=== PATIENT | female | born 1960 | race Caucasian/White ===

== ENCOUNTER → 2016-12-30 | Outpatient (CLI) | payer MEDICAID | END | disposition home or self-care (01) | LOC: LABWHC1 07:12 | PROVIDERS: ATTEND Internal Medicine Endocrinology, Diabetes & Metabolism | DX: E03.9 Hypothyroidism, unspecified (principal) | CPT/HCPCS: 36415; 84439; 84443; 84481 ==

== ENCOUNTER → 2017-01-25 | Outpatient (CLI) | payer MEDICAID ==
--- NOTE | 2017-01-25 22:40 | PN ---
Rody is 56 with known history of obstructive sleep apnea, maintained on CPAP pressure of 7 cm of water, which was further increased up to 8 cm of water because of some suspected suboptimal response. Please refer to my consultation note of 08/31/2016. This patient underwent her sleep study at [facility] a few years back. She was given a diagnosis of sleep apnea and she was being treated with a CPAP pressure of 7. Based on her weight gain history, I increased her pressure up to 8 cm of water. On today's evaluation, she is still feeling non-rested. She is wearing a FitBit which is showing poor sleep quality. On average she is taking less than 6 hours of sleep, and at the same time she is having frequent arousals throughout the night based on the recorded data being downloaded. I think her sleep is fragmented. The possibilities are many, although I suspect fibromyalgia being a contributing factor along with her increased anxiety and low-grade depression. For that reason I recommended starting this patient on low-dose amitriptyline 10 mg at bedtime. Meanwhile she will continue using her CPAP at a pressure of 8 cm of water. She has an S9 CPAP unit which she has been utilizing, and her weight has been stable over the past 6 months. There is questionable restless in the lower extremities, and she has been treated in the past with some side effects of treatment. I believe she was given clonazepam back then. PERTINENT PHYSICAL FINDINGS: BP is 113/90, pulse 83, respiration 16, temperature 98.1, saturation 99% on room air. Height is 69-1/2 inches. Weight is 226. BMI is 32.8. Chuckey score is 5. GENERAL APPEARANCE: Calm, comfortable. HEENT: Negative for JVD. There is no goiter or neck mass. LUNGS: Clear to auscultation. HEART: Sounds are regular rate and rhythm. Normal S1, S2. No S3. No S4. No murmurs. ABDOMEN: Soft, nontender. No organomegaly. EXTREMITIES: No edema. No cyanosis or clubbing. IMPRESSION: 1. Obstructive sleep apnea, currently on CPAP with a pressure of 8 cm of water. The patient remains compliant. 2. Sleep fragmentation with frequent nocturnal arousals. Rule out comorbidities, including anxiety and fibromyalgia contributing to this. 3. Increased hypersomnia and fatigue secondary to above. 4. Hypothyroidism. 5. Chronic allergic rhinitis. PLAN: 1. Will ask the patient to extend her sleep hours to an average of 6 to 7 hours of sleep per night. 2. Add Elavil 10 mg at bedtime, which will help this patient's symptoms of fibromyalgia and promote some degree of sleepiness at nighttime. 3. See me back in 6 months' time in followup. Meanwhile, the patient was asked to continue wearing the CPAP pressure at the same level.
== END | disposition home or self-care (01) ==
LOC: SLEEP 16:38
PROVIDERS: ATTEND Internal Medicine Critical Care Medicine
DX: G47.33 Obstructive sleep apnea (adult) (pediatric) (principal); G47.10 Hypersomnia, unspecified; E03.9 Hypothyroidism, unspecified; J30.9 Allergic rhinitis, unspecified; E66.9 Obesity, unspecified; F41.9 Anxiety disorder, unspecified; F32.9 Major depressive disorder, single episode, unspecified; Z68.32 Body mass index [BMI] 32.0-32.9, adult; Z99.89 Dependence on other enabling machines and devices

== ENCOUNTER 2017-03-11 06:56 | Day surgery (SDC) | payer MEDICAID ==
[2017-03-07 15:00] VITALS: BMI 30.7
[~2017-03-11 06:56] MED LIST: LACTATED RINGERS 1,000 ML IV SCH
[2017-03-11] MEDS ORDERED: LACTATED RINGERS 1,000 ML IV ONE (07:00)
[2017-03-11 07:11] VITALS: RESP 16; TEMP 98
[2017-03-11] MEDS ORDERED: PROPOFOL 10 MG/ML 20 ML VIAL IV ONE (07:38)
[2017-03-11] MEDS ORDERED: fentaNYL (PF) 50 MCG/ML 2 ML AMP ONE (07:38)
[2017-03-11] MEDS ORDERED: MIDAZOLAM 2 MG/2 ML VIAL ONE (07:38)
--- NOTE | 2017-03-11 07:46 | P.GSHP ---
History of Present Illness H&P Date: 03/11/17 Chief Complaint: Colon cancer screening Patient here today for colonoscopy. Her last one was about 7-8 years ago. She has a family history of colon cancer and her parents. No bowel related complaints. Last colonoscopy was normal. Past Medical History Past Medical History: Cancer, Fibromyalgia, Sleep Apnea/CPAP/BIPAP, Thyroid Disorder Additional Past Medical History / Comment(s): no current medication for BP, influenza 2 months ago, skiin cancer History of Any Multi-Drug Resistant Organisms: None Reported Past Surgical History: Section, Cholecystectomy, Orthopedic Surgery Additional Past Surgical History / Comment(s): danna carpal tunnel Past Anesthesia/Blood Transfusion Reactions: Motion Sickness Past Psychological History: No Psychological Hx Reported Smoking Status: Never smoker Past Alcohol Use History: Occasional Past Drug Use History: None Reported - Past Family History Mother Family Medical History: No Reported History Medications and Allergies Home Medications Medication Instructions Recorded Confirmed Type Albuterol Sulfate [Proair Hfa] 2 puff INHALATION DAILY PRN 03/07/17 03/11/17 History Loratadine [Claritin] 10 mg PO DAILY 03/07/17 03/11/17 History Ranitidine HCl 150 mg PO BID 03/07/17 03/11/17 History Thyroid,Pork [[place] Thyroid] 120 mg PO SUSA 03/07/17 03/11/17 History Thyroid,Pork [[place] Thyroid] 180 mg PO MOTUWETHFR 03/07/17 03/11/17 History Allergies Allergy/AdvReac Type Severity Reaction Status Date / Time No Known Allergies Allergy Verified 03/11/17 07:12 Surgical - Exam Vital Signs Temp Pulse Resp BP 98 F 72 16 138/74 03/11/17 07:08 03/11/17 07:08 03/11/17 07:08 03/11/17 07:08 Physical exam: General: Well-developed, well-nourished HEENT: Normocephalic, sclerae nonicteric Abdomen: Nontender, nondistended Extremities: No edema Neuro: Alert and oriented Assessment and Plan (1) Colon cancer screening Narrative/Plan: Will proceed with colonoscopy at this time. Risks of bleeding and perforation were discussed. Status: Acute
--- NOTE | 2017-03-11 08:00 | P.PCN ---
Date of Procedure: 03/11/17 Procedure(s) Performed: PREOPERATIVE DIAGNOSIS: Colon cancer screening, family history POSTOPERATIVE DIAGNOSIS: Diverticulosis PROCEDURE: Colonoscopy ANESTHESIA: MAC SURGEON: Ran Nelson M.D. SPECIMENS: None ENDOSCOPIC PROCEDURE: The patient was placed on the endoscopy table in the left decubitus position. The Olympus colonoscope was inserted into the anus and passed under direct visualization to the base of the cecum. The appendiceal orifice was visualized. From that point the scope was slowly withdrawn inspecting all surfaces carefully. There were no neoplastic inflammatory or polypoid lesions throughout the cecum, ascending, transverse, descending, sigmoid and rectum. There was mild diverticulosis noted in the left colon. Digital rectal examination was normal. The patient was taken to the recovery room in stable condition per anesthesia guidelines. RECOMMENDATIONS: Increase fiber. Follow-up colonoscopy 5 years.
[2017-03-11 08:19] VITALS: BP 142/84; PULSE 79
== END 2017-03-11 08:42 | disposition home or self-care (01) ==
LOC: ORWHC2ENDO 06:56
PROVIDERS: ATTEND Surgery
DX: Z12.11 Encounter for screening for malignant neoplasm of colon (principal); K57.90 Diverticulosis of intestine, part unspecified, without perforation or abscess without bleeding; K21.9 Gastro-esophageal reflux disease without esophagitis; Z80.0 Family history of malignant neoplasm of digestive organs; M79.7 Fibromyalgia; G47.30 Sleep apnea, unspecified; Z99.89 Dependence on other enabling machines and devices; E07.9 Disorder of thyroid, unspecified; Z79.899 Other long term (current) drug therapy
CPT/HCPCS: J2250; J3010; J2704; G0105

== ENCOUNTER → 2017-04-22 | Outpatient (CLI) | payer MEDICAID ==
--- NOTE | 2017-04-22 12:03 | XR ---
EXAMINATION TYPE: XR chest 2V DATE OF EXAM ORDERED: 04/22/2017 HISTORY: R07.9 chest pain. REFERENCE: None. FINDINGS: The lungs are clear. Pleural spaces are clear. Heart size is normal. IMPRESSION: NORMAL CHEST.
== END | disposition home or self-care (01) ==
LOC: RADXRMAIN 11:35
PROVIDERS: ATTEND Family Medicine
DX: R07.9 Chest pain, unspecified (principal)
CPT/HCPCS: 71020

== ENCOUNTER → 2017-04-23 | Outpatient (CLI) | payer MEDICAID ==
[2017-04-23 08:24] LABS: Basophils % (A) 1 %; CH 29.4; CHCM 34.1; Eosinophils # (A) 0.1 k/uL (0-0.7); Eosinophils % (A) 2 %; HCT 38.6 % (34.0-46.0); HDW 3.14; HGB 13.2 gm/dL (11.4-16.0); Luc # (Auto) 0.13; Luc % (Auto) 3; Lymphocytes # (A) 1.6 k/uL (1.0-4.8); Lymphocytes % (A) 36 %; MCH 29.7 pg (25.0-35.0); MCHC 34.2 g/dL (31.0-37.0); MCV 86.8 fL (80.0-100.0); Mean Platelet Volume 6.8; Monocytes # (A) 0.3 k/uL (0-1.0); Monocytes % (A) 6 %; Neutrophils # (A) 2.3 k/uL (1.3-7.7); Neutrophils % (A) 52 %; RBC 4.44 m/uL (3.80-5.40); RDW 13.2 % (11.5-15.5); WBC 4.5 k/uL (3.8-10.6); WBC (Perox) 4.66
[2017-04-23 08:34] LABS: ALT 30 U/L (9-52); AST 22 U/L (14-36); Alkaline Phosphatase 78 U/L (38-126); Anion Gap 8 mmol/L; Blood Urea Nitrogen 21 mg/dL (7-17); Calcium 9.6 mg/dL (8.4-10.2); Carbon Dioxide 27 mmol/L (22-30); Chloride 106 mmol/L (98-107); Cholesterol 204 mg/dL (<200); Glucose 94 mg/dL (74-99); HDL Cholesterol 75 mg/dL (40-60); Non-African American GFR(MDRD) >60 (>60 ml/min/1.73 sqM); Potassium 4.8 mmol/L (3.5-5.1); Sodium 141 mmol/L (137-145); Total Bilirubin 0.4 mg/dL (0.2-1.3); Triglycerides 147 mg/dL (<150)
== END | disposition home or self-care (01) ==
LOC: LABWHC1 07:03
PROVIDERS: ATTEND Family Medicine
DX: I10 Essential (primary) hypertension (principal)
CPT/HCPCS: 36415; 80053; 80061; 85025

== ENCOUNTER → 2017-05-05 | Outpatient (CLI) | payer MEDICAID ==
--- NOTE | 2017-05-05 21:33 | CT ---
EXAMINATION TYPE: CT chest w con DATE OF EXAM: 05/05/2017 COMPARISON: NONE HISTORY: Congestion x3 months. CT DLP: 420.5 mGycm Automated exposure control for dose reduction was used. CONTRAST: CT scan of the chest is performed with IV Contrast, patient injected with 90 mL of Omnipaque 300. FINDINGS: LUNGS: There is a 3 mm nodule within the right middle lobe on axial image 38 no pneumothorax or conso lidation. No pleural effusion. MEDIASTINUM: There are no greater than 1 cm hilar or mediastinal lymph nodes. No pericardial effusi on is seen. Aorta of normal caliber. OTHER: Hypodensity within the left lobe of the liver does not appear to be compatible with simple cy st. Measures approximately 10 mm.. Surgical clips in the gallbladder fossa. Sclerosis involving a low er right lateral rib is nonspecific. IMPRESSION: 1. No acute intrathoracic process. 2. There is a 3 mm right middle lobe pulmonary nodule. Finding 2 small to characterize. Recommend 6 month follow-up to confirm stability. 3. There is a 1 cm hepatic lesion does not meet the criteria of simple cyst. Follow-up ultrasound rec ommended. 4. Nonspecific sclerosis involving the lower right posterior rib. No destructive change or fracture. If the patient is point tender could be followed with bone scan.
== END | disposition home or self-care (01) ==
LOC: RADCTMAIN 18:29
PROVIDERS: ATTEND Family Medicine
DX: R91.1 Solitary pulmonary nodule (principal); M89.8X8 Other specified disorders of bone, other site
CPT/HCPCS: 71260; Q9967

== ENCOUNTER 2017-05-12 09:14 | Day surgery (SDC) | payer MEDICAID ==
[2017-05-09 10:55] VITALS: BMI 29.9
[~2017-05-12 09:14] MED LIST changes: +ACETAMINOPHEN TAB 500 MG TAB PO ONE; +DEXAMETHASONE SOD PHOSPHATE 10 MG/ML 1 ML VIAL IV ONE; +DEXAMETHASONE SOD PHOSPHATE 4 MG/ML 1 ML VIAL IV ONE; +FAMOTIDINE 20 MG/2 ML VIAL IV ONE; +HYDROmorphone 1 MG/ML 1 ML SYRINGE IVP PRN; +ONDANSETRON 4 MG/2 ML VIAL IVP ONE; +Pre Op ABX Message 1 EACH MISC MISCELLANE ONE
[2017-05-12] MEDS ORDERED: LIDOCAINE 1% 20 ML VIAL (10MG/ML) FOR IV START INTRADERMA ONE (09:30)
[2017-05-12] MEDS ORDERED: DEXAMETHASONE SOD PHOS (MDV) 100 MG/10 ML VIAL ONE (11:40)
[2017-05-12] MEDS ORDERED: MIDAZOLAM 2 MG/2 ML VIAL ONE (11:40)
[2017-05-12] MEDS ORDERED: LIDOCAINE 1% INJ 10MG/ML (20 ML MDV) ONE (11:40)
[2017-05-12] MEDS ORDERED: fentaNYL (PF) 50 MCG/ML 2 ML AMP ONE (11:40)
[2017-05-12] MEDS ORDERED: PROPOFOL 10 MG/ML 20 ML VIAL IV ONE (11:40)
[2017-05-12] MEDS ORDERED: SUCCINYLCHOLINE CHLORIDE VIAL 200 MG/10 ML VIAL IV ONE (11:40)
[2017-05-12] MEDS ORDERED: LIDOCAINE 1%-EPI 1:100,000 20 ML VIAL SUBMUCOSAL ONE (12:00)
[2017-05-12] MEDS ORDERED: BUPIVACAINE (PF) 0.25% 30 ML VIAL MISCELLANE ONE (12:00)
[2017-05-12 12:36] VITALS: RESP 16; TEMP 97.8
--- NOTE | 2017-05-12 12:47 | P.OP ---
Date of Procedure: 05/12/17 Preoperative Diagnosis: Right tonsil mass Cryptic tonsillitis Postoperative Diagnosis: Same Procedure(s) Performed: Tonsillectomy Implants: Anesthesia: LIZANDROA Surgeon: Fransico Goldstein Estimated Blood Loss (ml): 5 Pathology: other (Tonsils) Condition: stable Disposition: PACU Indications for Procedure: This patient presents the office is a 57-year-old white female with chronic sore throat issues. Her problems been present for several months. She was found to have a lesion or mass on the right tonsil. She's had bilateral cryptic tonsillitis but she has a white solid mass that she is worried about would like to have this removed. She also wishes to have both her tonsils removed as she's had some cryptitis on the left she's been a chronic problem with some halitosis. She also does not want have to worry about the contralateral side. All risks, benefits, and alternative therapies were discussed in detail. Consent was obtained and all questions were answered. Operative Findings: Patient was found have bilateral cryptic tonsillitis with a right tonsillar mass Description of Procedure: Prior to surgery all risks, benefits, and alternative therapies were discussed in detail. Risks of bleeding, infection, need for secondary surgery, airway problems, anesthetic complications, etc. etc. were discussed in detail. Consent was obtained and all questions were answered. OPERATIVE PROCEDURE: This patient was taken to the operative room and placed in the supine position. A functioning IV line was in placed and the patient was monitored throughout the entire case by the department of anesthesia. The patient underwent general anesthetic with intubation and tube was secured. A McIvor mouth gag was placed into the patients mouth with care to avoid any trauma to the lips, teeth, gums or tongue. Mouth was opened and tongue was depressed. The tonsils were grasped with an Allis forceps and brought medially bilaterally. A subcapsular dissection was performed utilizing an Evac-70 handpiece with an Arthrotec setting of 7. The tonsils were removed without incident bilaterally and the tonsillar fossae were inspected and bleeding was nonexistent and stopped spontaneously with Coblation. A Marcaine and lidocaine mixture was injected into the peritonsillar area for anesthesia postoperatively. After the tonsillar fossae were reinspected and no bleeding was seen attention was then paid to the nasopharynx where a red rubber catheter was placed into the nose and out the mouth and used to retract the soft palate. With use of indirect mirror examination and the Coblation hand wand, the adenoid tissue was removed in that fashion again utilizing an Evac-70 handpiece with Arthrotec setting of 7. The adenoid tissues were removed and fulgurated. The patient tolerated this procedure well. The nasopharynx shows no signs of any bleeding. McIvor mouth gag and the red rubber catheter were removed. The stomach was suctioned and the patient was taken to postanesthesia recovery in excellent condition having tolerated this procedure well. The patient will follow up in the office in one week as scheduled.
[2017-05-12] MEDS ORDERED: ONDANSETRON 4 MG/2 ML VIAL IVP ONE (14:10)
[2017-05-12] MEDS ORDERED: METOCLOPRAMIDE 5 MG/ML 2 ML VIAL IVP ONE (14:13)
[2017-05-12] MEDS ORDERED: LACTATED RINGERS 1,000 ML IV ONE (15:15)
[2017-05-12 15:16] VITALS: BP 139/75; PULSE 88
== END 2017-05-12 16:15 | disposition home or self-care (01) ==
LOC: OR 09:14
PROVIDERS: ATTEND Otolaryngology
DX: J35.01 Chronic tonsillitis (principal); G47.33 Obstructive sleep apnea (adult) (pediatric); E07.9 Disorder of thyroid, unspecified; Z79.2 Long term (current) use of antibiotics; Z79.51 Long term (current) use of inhaled steroids; Z79.52 Long term (current) use of systemic steroids; Z79.899 Other long term (current) drug therapy
CPT/HCPCS: 88304; 42826; J2250; J0330; J1100 ×2; J2765; J2405; J2001; J3010; J1170; J2704

== ENCOUNTER → 2017-06-23 | Outpatient (CLI) | payer MEDICAID | END | disposition home or self-care (01) | LOC: LABWHC1 16:18 | PROVIDERS: ATTEND Internal Medicine Endocrinology, Diabetes & Metabolism | DX: E03.9 Hypothyroidism, unspecified (principal) | CPT/HCPCS: 36415; 84439; 84443; 84481 ==

== ENCOUNTER → 2017-08-25 | Outpatient (CLI) | payer MEDICAID | END | disposition home or self-care (01) | LOC: LABWHC1 07:03 | PROVIDERS: ATTEND Internal Medicine Endocrinology, Diabetes & Metabolism | DX: E03.9 Hypothyroidism, unspecified (principal) | CPT/HCPCS: 36415; 84439; 84443; 84481 ==

== ENCOUNTER → 2017-10-19 | Outpatient (CLI) | payer MEDICAID ==
--- NOTE | 2017-10-19 08:20 | BD ---
EXAMINATION TYPE: MG DEXA axial skeleton. DATE OF EXAM: 10/19/2017 COMPARISON: DEXA bone scan October 22, 2015 CLINICAL HISTORY: Osteopenia per order. Height: 5 FT 11 IN Weight: 225 FRAX RISK QUESTIONS: Alcohol (3 or more units per day): NO Family History (Parent hip fracture): YES Glucocorticoids (More than 3mos): NO (Ex: prednisone, prednisolone, methylprednisolone, dexamethasone, and hydrocortisone). History of Fracture in Adulthood: NO Secondary Osteoporosis: 1. Type 1 Diabetes: NO 2. Hyperthyroidism: NO 3. Menopause before 45: NO 4. Malnutrition: NO 5. Chronic liver disease: NO Rheumatoid Arthritis: NO Current Tobacco Use: NO RISK FACTORS HISTORY OF: Active: YES Postmenopausal woman: AGE 49 MEDICATIONS: Additional Medications: BUILDING [employer]STRUCTION [employer]OR THYROID, CITALOPRAM, CLARITIN NEEDED Additional History: EXAM MEASUREMENTS: Bone mineral densitometry was performed using the [employer] System. Bone mineral density as measured about the Lumbar spine is: ----- L1-L4(G/cm2): 1.097 T Score Values are as follows: ----- L2: -1.0 ----- L3: -1.0 ----- L4: -0.2 ----- L1-L4: -0.7 Bone mineral density has: DECREASED -7.2 % since study of: 2014 Bone mineral density about the R hip (g/cm2): 0.845 Bone mineral density about the L hip (g/cm2): 0.790 T Score values are as follows: -----R Neck: -1.4 -----L Neck: -1.8 -----R Total: -1.1 -----L Total: -1.0 Bone mineral density has: INCREASED 1.5 % since study of: 2014 IMPRESSION: Osteopenia (T Score between -2.5 and -1 as noted by T score values persists at femoral neck level in both hips. There is slightly increased risk of fracture and the patient may be considered for treatme nt. Re-Screen 2-5 years. NOTE: T-SCORE=SD OF THE YOUNG ADULT MEAN.
== END | disposition home or self-care (01) ==
LOC: RADBDWWP 07:18
PROVIDERS: ATTEND Obstetrics & Gynecology
DX: M85.851 Other specified disorders of bone density and structure, right thigh (principal); M85.852 Other specified disorders of bone density and structure, left thigh; M85.88 Other specified disorders of bone density and structure, other site
CPT/HCPCS: 77080

== ENCOUNTER → 2017-12-01 | Outpatient (CLI) | payer MEDICAID ==
--- NOTE | 2017-12-05 06:57 | MM ---
Reason for exam: screening (asymptomatic). Last mammogram was performed 1 year and 1 month ago. History: Patient is postmenopausal and has history of other cancer at age 52. Family history of breast cancer in paternal cousin at age 30. Physical Findings: A clinical breast exam by your physician is recommended on an annual basis and results should be correlated with mammographic findings. MG Screening Mammo w CAD Bilateral CC and MLO view(s) were taken. Prior study comparison: November 11, 2016, bilateral MG screening mammo w CAD. June 11, 2016, right breast MG diagnostic mammo RT w CAD. There are scattered fibroglandular densities. No significant changes when compared with prior studies. ASSESSMENT: Benign, BI-RAD 2 RECOMMENDATION: Routine screening mammogram of both breasts in 1 year.
== END | disposition home or self-care (01) ==
LOC: RADMAMWWP 07:19
PROVIDERS: ATTEND Obstetrics & Gynecology
DX: Z12.31 Encounter for screening mammogram for malignant neoplasm of breast (principal)
CPT/HCPCS: 77067

== ENCOUNTER → 2018-05-17 | Outpatient (CLI) | payer MEDICAID ==
[2018-05-17 13:01] LABS: T4, Free (Free Thyroxine) 0.74 ng/dL (0.78-2.19)
== END | disposition home or self-care (01) ==
LOC: LABWHC1 11:19
PROVIDERS: ATTEND Internal Medicine Endocrinology, Diabetes & Metabolism
DX: E03.9 Hypothyroidism, unspecified (principal)
CPT/HCPCS: 36415; 84439; 84443; 84481

== ENCOUNTER → 2018-08-12 | Outpatient (CLI) | payer MEDICAID ==
[2018-08-12 10:17] LABS: T4, Free (Free Thyroxine) 0.66 ng/dL (0.78-2.19)
== END ==
LOC: LABWHC1 08:48
PROVIDERS: ATTEND Internal Medicine Endocrinology, Diabetes & Metabolism
DX: E03.9 Hypothyroidism, unspecified (principal)
CPT/HCPCS: 36415; 84439; 84443; 84481

== ENCOUNTER → 2018-08-15 | Outpatient (CLI) | payer MEDICAID ==
--- NOTE | 2018-08-15 07:46 | MR ---
EXAMINATION TYPE: MR lumbar spine wo con DATE OF EXAM: 08/15/2018 COMPARISON: None HISTORY: 58-year-old female Low back pain, Pain in Right hip TECHNIQUE: Multiplanar, multisequence images of the lumbar spine were acquired. Findings: Vertebral body heights are preserved and alignment is maintained. No suspicious bone marrow replacement. There is Modic type II fatty endplate change anteriorly and towards the left at L3-L4. Mild multileve l degenerative disc disease characterized by a variable mild disc desiccation and diffuse bulging dis cs particularly from L3 through S1 levels. There is a left paracentral and intraforaminal annular fissure at L5-S1. Ligamentum flavum thickening with hypertrophic facet arthropathy mid to lower lumbar spine and some p rominent epidural fat mid to lower lumbar spine. Additional component of mild congenital spinal canal stenosis lower lumbar spine with AP canal dimens ion of 1.3 cm. No prevertebral or paravertebral soft tissue abnormality. From T12 through L3 levels, no significant spinal canal or neuroforaminal stenosis. At L3-L4, there is diffuse disc bulge with ligamentum flavum thickening and facet arthropathy. Change s mildly narrow the spinal canal and cause minimal inferior right neuroforaminal stenosis. At L4-L5, there is diffuse disc bulge with ligamentum flavum thickening, hypertrophic facet arthropat hy, and prominent dorsal epidural fat. Changes result in a moderate spinal canal stenosis with mild b ilateral neuroforaminal stenosis. Disc material abuts both traversing L5 nerve roots. At L5-S1, there is bulging disc with a left intraforaminal annular fissure which closely approaches b ut does not clearly abut the traversing left S1 nerve root. Facet arthropathy is also present. Right lateral disc bulge may abut the exiting and extraforaminal right L5 nerve root, reference axial image 3 and sagittal image 13. No significant spinal canal stenosis. IMPRESSION: 1. Hypertrophic facet arthropathy and ligamentum flavum thickening mid to lower lumbar spine. No vert ebral compression collapse or malalignment. 2. Additional mild multilevel degenerative disc disease. Changes are superimposed on a mild congenita l spinal canal narrowing of the mid to lower lumbar spine. 3. Overall moderate spinal canal stenosis at L4-L5 with mild bilateral neural foraminal stenosis. Dis c material abuts both traversing L5 nerve roots. 4. Left intraforaminal annular fissure at L5-S1. No nerve root contact here. Right lateral disc bulge at L5-S1 may abut the exiting/extraforaminal right L5 nerve root at this level.
== END | disposition home or self-care (01) ==
LOC: RADMRIMAIN 06:15
PROVIDERS: ATTEND Physical Medicine & Rehabilitation
DX: M48.061 Spinal stenosis, lumbar region without neurogenic claudication (principal); M99.73 Connective tissue and disc stenosis of intervertebral foramina of lumbar region; M51.17 Intervertebral disc disorders with radiculopathy, lumbosacral region; M46.96 Unspecified inflammatory spondylopathy, lumbar region; M25.551 Pain in right hip
CPT/HCPCS: 72148

== ENCOUNTER → 2018-12-29 | Outpatient (CLI) | payer MEDICAID ==
--- NOTE | 2018-12-29 13:39 | MM ---
Reason for exam: screening (asymptomatic). Last mammogram was performed 1 year and 1 month ago. History: Patient is postmenopausal and has history of other cancer at age 52. Family history of breast cancer in paternal cousin at age 30. Physical Findings: A clinical breast exam by your physician is recommended on an annual basis and results should be correlated with mammographic findings. MG Screening Mammo w CAD Bilateral CC and MLO view(s) were taken. Prior study comparison: December 01, 2017, bilateral MG screening mammo w CAD. November 11, 2016, bilateral MG screening mammo w CAD. There are scattered fibroglandular densities. No suspicious abnormality. No significant changes when compared with prior studies. ASSESSMENT: Negative, BI-RAD 1 RECOMMENDATION: Routine screening mammogram of both breasts in 1 year.
== END | disposition home or self-care (01) ==
LOC: RADMAMWWP 07:08
PROVIDERS: ATTEND Obstetrics & Gynecology
DX: Z12.31 Encounter for screening mammogram for malignant neoplasm of breast (principal)
CPT/HCPCS: 77067

== ENCOUNTER → 2019-01-26 | Outpatient (CLI) | payer MEDICAID | END | disposition home or self-care (01) | LOC: LABWHC1 06:41 | PROVIDERS: ATTEND Family Medicine | DX: E03.9 Hypothyroidism, unspecified (principal) | CPT/HCPCS: 36415; 84443 ==

== ENCOUNTER → 2019-02-09 | Outpatient (CLI) | payer MEDICAID ==
[2019-02-09 07:12] LABS: Basophils # (A) 0.1 k/uL (0-0.2); Basophils % (A) 1 %; Eosinophils # (A) 0.2 k/uL (0-0.7); Eosinophils % (A) 3 %; HCT 40.9 % (34.0-46.0); HGB 13.4 gm/dL (11.4-16.0); Lymphocytes # (A) 1.2 k/uL (1.0-4.8); Lymphocytes % (A) 21 %; MCH 28.4 pg (25.0-35.0); MCHC 32.9 g/dL (31.0-37.0); MCV 86.4 fL (80.0-100.0); Mean Platelet Volume 6.6; Monocytes # (A) 0.4 k/uL (0-1.0); Monocytes % (A) 7 %; Neutrophils # (A) 3.7 k/uL (1.3-7.7); Neutrophils % (A) 66 %; Platelet Count 229 k/uL (150-450); RBC 4.73 m/uL (3.80-5.40); RDW 12.9 % (11.5-15.5); WBC 5.6 k/uL (3.8-10.6)
--- NOTE | 2019-02-09 07:13 | XR ---
EXAMINATION TYPE: XR chest 2V DATE OF EXAM: 02/09/2019 COMPARISON: Chest x-ray April 22, 2017. CT chest May 05, 2017. HISTORY: Shortness of breath. TECHNIQUE: Frontal and lateral views of the chest are obtained. FINDINGS: There is no focal air space opacity, pleural effusion, or pneumothorax seen. The cardiac silhouette size is within normal limits. The osseous structures are intact. Cholecystectomy clips a re noted on lateral view. IMPRESSION: No acute cardiopulmonary process.
[2019-02-09 11:45] LABS: Albumin 4.6 g/dL (3.80-4.90); Albumin/Globulin Ratio 2.71 (1.60-3.17); Anion Gap 5.3 mmol/L (4.00-12.00); Calcium 9.4 mg/dL (8.7-10.3); Carbon Dioxide 28.7 mmol/L (21.6-31.8); Globulin 1.7 g/dL (1.6-3.3); LDL Cholesterol,Calculated 115.6 mg/dL (0.0-131.0); Potassium 4.6 mmol/L (3.5-5.5); Total Bilirubin 0.4 mg/dL (0.3-1.2); Total Protein 6.3 g/dL (6.2-8.2); VLDL Calculation 20.4 mg/dL (5.00-40.00)
== END ==
LOC: LABWHC1 06:33
PROVIDERS: ATTEND Family Medicine
DX: R06.09 Other forms of dyspnea (principal); I10 Essential (primary) hypertension; M85.859 Other specified disorders of bone density and structure, unspecified thigh
CPT/HCPCS: 36415; 71046; 80053; 80061; 82306; 85025; 93005

== ENCOUNTER → 2019-02-23 | Outpatient (CLI) | payer MEDICAID ==
--- NOTE | 2019-02-23 10:59 | P.STRESS ---
- Stress Test Note Stress Test Results/Findings: Exam Performed: stress echo exercise Exam Date: 02/23/19 Reason for Exam: DYSPNEA Height: 5 ft 11 in Weight: 107.955 kg Protocol: ROSIO Stage: 2 Duration of Exercise: 5:00 Resting Heart Rate: 88 Resting Blood Pressure: 125/63 Maximum Achieved Heart Rate: 158 Maximum Achieved Blood Pressure: 176/60 85% PMHR: 137 100% PMHR: 161 METS: 7.0 Technologist Comment: Stress Test Results/Findings: This is a 58-year-old female with history of hypertension and family history of ischemic heart disease being evaluated for symptoms of chest pain, shortness of breath and palpitations. Stress data: Baseline EKG showed sinus rhythm with normal VT interval and QRS duration. Blood pressure at rest is 125/63 with pulse rate of 88. Patient walked on the Rosio protocol for 5 minutes achieving a maximum rate of 158 with blood pressure 176/76. EKGs taken during and after the exercise did not reveal any changes to suggest ischemia. Patient did not express any chest pain. Echo data: Baseline echo images showed normal wall motion and thickening. Exercise echo images showed augmentation of the wall motion and thickening in all the segments. Final impression: #1. Negative stress test #2. Negative stress echo
== END | disposition home or self-care (01) ==
LOC: RADNMMAIN 09:49
PROVIDERS: ATTEND Family Medicine
DX: R06.09 Other forms of dyspnea (principal)
CPT/HCPCS: 93351

== ENCOUNTER → 2019-03-08 | Outpatient (CLI) | payer MEDICAID ==
--- NOTE | 2019-03-08 08:54 | BD ---
EXAMINATION TYPE: Axial Bone Density DATE OF EXAM: 03/08/2019 COMPARISON: Prior DEXA bone scan 2017 CLINICAL HISTORY: Postmenopausal female. Height: 71 Weight: 233.8 FRAX RISK QUESTIONS: Alcohol (3 or more units per day): no Family History (Parent hip fracture): yes Glucocorticoids (More than 3mos): no (Ex: prednisone, prednisolone, methylprednisolone, dexamethasone, and hydrocortisone). History of Fracture in Adulthood: no Secondary Osteoporosis: 1. Type 1 Diabetes: no 2. Hyperthyroidism: no 3. Menopause before 45: no 4. Malnutrition: no 5. Chronic liver disease: no Rheumatoid Arthritis: no Current Tobacco Use: no RISK FACTORS HISTORY OF: Family History of Osteoporosis: no Active: yes Postmenopausal woman: age 49 MEDICATIONS: citalopram, lisinopril Thyroid Medications: thyroid How Long: Additional History: EXAM MEASUREMENTS: Bone mineral densitometry was performed using the [employer] System. Bone mineral density as measured about the Lumbar spine is: ----- L1-L4(G/cm2): 1.102 T Score Values are as follows: ----- L2: -1.5 ----- L3: -0.1 ----- L4: 0.4 ----- L1-L4: -0.7 Bone mineral density has: increased 3.9 % since study of: 10.19.2017 Bone mineral density about the R hip (g/cm2): 0.795 Bone mineral density about the L hip (g/cm2): 0.812 T Score values are as follows: -----R Neck: -1.7 -----L Neck: -1.6 -----R Total: -1.3 -----L Total: -1.0 Bone mineral density has: decreased -1.5 % since study of: 10.19.2017 IMPRESSION: Osteopenia (T Score between -2.5 and -1) redemonstrated. There remains slightly increased risk of fracture and the patient may be considered for treatment. Re-Screen 2-5 years. NOTE: T-SCORE=SD OF THE YOUNG ADULT MEAN.
== END | disposition home or self-care (01) ==
LOC: RADBDWWP 07:18
PROVIDERS: ATTEND Obstetrics & Gynecology
DX: Z13.820 Encounter for screening for osteoporosis (principal); M85.88 Other specified disorders of bone density and structure, other site
CPT/HCPCS: 77080

== ENCOUNTER → 2019-09-04 | Outpatient (CLI) | payer BC ==
[2019-09-04 18:55] LABS: T4, Free (Free Thyroxine) 0.7 ng/dL (0.80-1.80)
== END | disposition home or self-care (01) ==
LOC: LABWHC1 12:20
PROVIDERS: ATTEND Internal Medicine Endocrinology, Diabetes & Metabolism
DX: E03.9 Hypothyroidism, unspecified (principal)
CPT/HCPCS: 36415; 84439; 84443; 84481

== ENCOUNTER → 2021-05-08 | Outpatient (CLI) | payer BC ==
--- NOTE | 2021-05-09 07:08 | CT ---
EXAMINATION TYPE: CT angio chest DATE OF EXAM: 05/08/2021 5:14 PM COMPARISON: CT chest May 05, 2017 HISTORY: Dyspnea. CT DLP: 588.9 mGycm Automated exposure control for dose reduction was used. CONTRAST: CTA scan of the thorax is performed with IV Contrast, patient injected with 75ml mL of Isovue 370, pu lmonary embolism protocol. MIP images are created and reviewed. FINDINGS: LUNGS: The lungs remaining grossly clear, there is no concerning greater than 5 mm new or enlarging p arenchymal mass or nodule identified. Mild biapical pleural/parenchymal scarring. Mild linear scarrin g with stable slight nodularity in the right middle lobe just above the diaphragm. There is no pleur al effusion or pneumothorax seen. The tracheobronchial tree is patent. MEDIASTINUM: There is suboptimal bolus with near equal contrasted right and left heart systems and mu ltiple stents contrast in the SVC, but there is no convincing CT evidence for acute pulmonary embolis m. There are no greater than 1 cm hilar or mediastinal lymph nodes. No cardiomegaly or pericardial effusion is seen. Small caliber thyroid redemonstrated. OTHER: Cholecystectomy clips. IMPRESSION: No CT evidence for acute pulmonary embolism. Mild chronic parenchymal changes without acu te pulmonary process. No significant change from prior CT.
== END | disposition home or self-care (01) ==
LOC: RADCTMAIN 16:34
PROVIDERS: ATTEND Internal Medicine Critical Care Medicine
DX: R06.00 Dyspnea, unspecified (principal)
CPT/HCPCS: 71275; Q9967

== ENCOUNTER → 2022-08-16 | Outpatient (CLI) | payer BC ==
--- NOTE | 2022-08-16 17:14 | BD ---
EXAMINATION TYPE: Axial Bone Density DATE OF EXAM: 08/16/2022 COMPARISON: 03.08.2019 STUDY UNAVAILABLE, TRENDED TO 10.19.2017 STUDY CLINICAL HISTORY: 62 years year old Female. ICD-10 CODE: M85.88 Other disorder of bone density; oste openia Height: 69.4 Weight: 227 FRAX RISK QUESTIONS: Family History (Parent hip fracture): YES Glucocorticoids (More than 3mos): YES (Ex: prednisone, prednisolone, methylprednisolone, dexamethasone, and hydrocortisone). 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 Bone mineral density as measured about the Lumbar spine is: ----- L1-L4(G/cm2): 1.072 T Score Values are as follows: ----- L1: 0.2 ----- L2: -2.0 ----- L3: -1.5 ----- L4: -0.2 ----- L1-L4: -0.9 Bone mineral density has: Decreased -2.3% SINCE: 10.19.2017 Bone mineral density about the R hip (g/cm2): 0.852 Bone mineral density about the L hip (g/cm2): 0.854 T Score values are as follows: -----R Neck: -1.6 -----L Neck: -1.8 -----R Total: -1.2 -----L Total: -1.2 Bone mineral density has: Decreased -2.6% SINCE: 10.19.2017 FRAX%s: The graph provided illustrates a 14.5%nce for a major osteoporotic fx and a 2.0%ance for the hips probability for fx in 10 years time. IMPRESSION: Osteopenia (T Score between -2.5 and -1). There is slightly increased risk of fracture and the patient may be considered for treatment. Re-Screen 2-5 years. NOTE: T-SCORE=SD OF THE YOUNG ADULT MEAN.
== END | disposition home or self-care (01) ==
LOC: RADBDWWP 08:32
PROVIDERS: ATTEND Obstetrics & Gynecology
DX: M85.89 Other specified disorders of bone density and structure, multiple sites (principal)
CPT/HCPCS: 77080

== ENCOUNTER → 2023-04-07 | Outpatient (CLI) | payer BC ==
[2023-04-07 20:29] LABS: Alternaria alternata IgE <0.10 kU/L; Aspergillus fumagatus IgE <0.10 kU/L; Birch IgE <0.10 kU/L; Elm IgE <0.10 kU/L; Maple (Box Elder) IgE <0.10 kU/L; Oak IgE <0.10 kU/L; Ragweed,Common IgE <0.10 kU/L
[2023-04-07 20:33] LABS: Cat Epith & Dander IgE <0.10 kU/L; Cladosporian herbarum IgE <0.10 kU/L; Cockroach IgE <0.10 kU/L; Dermato. farinae IgE <0.10 kU/L; Dog Dander IgE <0.10 kU/L; Red Top (Bentgrass) IgE <0.10 kU/L
[2023-04-08 00:22] LABS: Immunoglobulin E <0.20 IU/mL (0.00-114.00)
== END | disposition home or self-care (01) ==
LOC: LABWHC1 09:38
PROVIDERS: ATTEND Internal Medicine Critical Care Medicine
DX: R06.00 Dyspnea, unspecified (principal)
CPT/HCPCS: 36415; 82785; 85008; 86003

== ENCOUNTER 2023-11-18 06:12 | Day surgery (SDC) | payer BC, OTHER ==
[2023-11-15 14:14] VITALS: BMI 33.2
[~2023-11-18 06:12] MED LIST changes: -ACETAMINOPHEN TAB 500 MG TAB PO ONE; -DEXAMETHASONE SOD PHOSPHATE 10 MG/ML 1 ML VIAL IV ONE; -DEXAMETHASONE SOD PHOSPHATE 4 MG/ML 1 ML VIAL IV ONE; -FAMOTIDINE 20 MG/2 ML VIAL IV ONE; -HYDROmorphone 1 MG/ML 1 ML SYRINGE IVP PRN; -LACTATED RINGERS 1,000 ML IV SCH; -ONDANSETRON 4 MG/2 ML VIAL IVP ONE; -Pre Op ABX Message 1 EACH MISC MISCELLANE ONE; +TETRACAINE 0.5% OPHTH (PF) DROPS 4 ML BTL OP PRN
[2023-11-18] MEDS: CYCLOPENTOLATE 1% OPHTH SOLN 2 ML BTL OP PRN ×3 (06:40→06:52)
[2023-11-18] MEDS: PHENYLEPHRINE 2.5% OPHTH DRP 2ML OP PRN ×3 (06:43→06:55)
[2023-11-18] MEDS ORDERED: LACTATED RINGERS 1,000 ML IV ONE (06:54)
[2023-11-18 06:59] VITALS: TEMP 97.6
[2023-11-18] MEDS ORDERED: fentaNYL (PF) 50 MCG/ML 2 ML AMP ONE (07:30)
[2023-11-18] MEDS ORDERED: MIDAZOLAM 2 MG/2 ML VIAL ONE (07:30)
[2023-11-18] MEDS: MOXIFLOXACIN HCL 0.5% DROPS 3 ML BTL OP PRN ×2 (07:44→07:47)
[2023-11-18] MEDS: TIMOLOL 0.5% OPHTH DROPS 5 ML BTL OP PRN ×2 (07:44→07:47)
[2023-11-18] MEDS ORDERED: BALANCED SALT IRRIG SOLN COMB2 15 ML IRRIG.SOLN INTRAOCULA ONE ×2 (07:45→07:47)
[2023-11-18] MEDS ORDERED: HYALURONATE SODIUM INTRAOCULAR 1 EACH SYRINGE (12MG/ML) INTRAOCULA ONE ×2 (07:45→07:47)
[2023-11-18] MEDS ORDERED: EPINEPHrine (PF) 0.3 ML in BALANCED SALT IRRIG SOLN COMB2 500 ML IRRIGATION ONE (07:45)
[2023-11-18] MEDS ORDERED: LIDOCAINE 1% (PF) 10MG/ML VIAL MISCELLANE ONE ×2 (07:45→07:47)
--- NOTE | 2023-11-18 08:06 | P.OP ---
Date of Procedure: 11/18/23 Preoperative Diagnosis: NS & CS Postoperative Diagnosis: same Procedure(s) Performed: PIOL, OD Implants: [id number] 18.50 Anesthesia: MAC Surgeon: Beny Bose Pathology: none sent Condition: stable Disposition: same day Indications for Procedure: blurry vision Operative Findings: no complications
[2023-11-18 08:41] VITALS: BP 126/81; PULSE 74; RESP 20
--- NOTE | 2023-11-18 11:38 | OP ---
OPERATIVE REPORT DATE OF SERVICE : 11/18/2023 PREOPERATIVE DIAGNOSIS: Nuclear sclerosis, cortical sclerosis, right eye. POSTOPERATIVE DIAGNOSIS: Nuclear sclerosis, cortical sclerosis, right eye. OPERATION: Phacoemulsification of cataract and interocular lens implant, right eye. ESTIMATED BLOOD LOSS: Zero. SPECIMEN TAKEN: None. NARRATIVE: After obtaining the appropriate consent, the patient was brought to the operating room where the patient was placed under cardiac monitoring and prepped and draped in the usual sterile manner. At the 11 o'clock position, a 15-degree super sharp blade was used to create a paracentesis followed by instillation of 1% Xylocaine MPF 50:50 mix with BSS into the anterior chamber. This was followed by Amvisc viscoelastic to stabilize the anterior chamber. At the 9 o'clock position a self-sealing corneal flap incision was created using 2.8 mm chava keratome. A cystotome was used to initiate a continuous tear capsulorrhexis which was completed with the Utrata forceps. A Binkhorst cannula was used to hydrodissect the lens nucleus followed by hydrodelineation. Phacoemulsification of the lens was performed utilizing phacochop in 6.47 seconds at 9.4% power. The remaining cortical material was removed using the irrigation aspiration mode followed by additional 1% Xylocaine MPF into the anterior chamber followed by viscoelastic to stabilize the capsular bag. Tristen AcrySof IQ PanOptix model TFAT00 18.5 diopters posterior chamber lens was placed into the capsular bag without difficulty. The remaining viscoelastic material was removed from the anterior chamber with the irrigation/aspiration. Balanced salt solution was used to normalize the intraocular pressure. The incision was checked for watertight integrity. The patient then received 2 drops of 0.5% timolol followed by 2 drops Vigamox, was lightly patched and shielded in the usual manner. There were no complications from the procedure. The patient tolerated the procedure well and was returned to recovery in good condition. MMODL / IJN: [id number] /
== END 2023-11-18 08:40 | disposition home or self-care (01) ==
LOC: OR 06:12
PROVIDERS: ATTEND Ophthalmology
DX: H25.011 Cortical age-related cataract, right eye (principal)
CPT/HCPCS: 66984; V2632; J2250; J0171; J3010; J2001

== ENCOUNTER 2024-02-15 09:58 | Day surgery (SDC) | payer BC, OTHER ==
[2024-02-15] MEDS: LACTATED RINGERS 1,000 ML IV SCH (10:31)
[2024-02-15] MEDS: CYCLOPENTOLATE 1% OPHTH SOLN 2 ML BTL OP PRN (10:39)
[2024-02-15] MEDS: PHENYLEPHRINE 2.5% OPHTH DRP 2ML OP PRN (10:42)
[2024-02-15 10:56] VITALS: TEMP 97
[2024-02-15] MEDS: MOXIFLOXACIN HCL 0.5% DROPS 3 ML BTL OP PRN (11:29)
[2024-02-15] MEDS: LIDOCAINE 1% (PF) 10MG/ML VIAL MISCELLANE ONE (11:29)
[2024-02-15] MEDS: BALANCED SALT IRRIG SOLN COMB2 15 ML IRRIG.SOLN INTRAOCULA ONE (11:29)
[2024-02-15] MEDS: TIMOLOL 0.5% OPHTH DROPS 5 ML BTL OP PRN (11:30)
[2024-02-15] MEDS: DUOVISC KIT (GREEN BOX) INTRAOCULA ONE (11:30)
[2024-02-15] MEDS ORDERED: fentaNYL (PF) 50 MCG/ML 2 ML AMP ONE (11:37)
[2024-02-15] MEDS ORDERED: MIDAZOLAM 2 MG/2 ML VIAL ONE (11:37)
[2024-02-15] MEDS: EPINEPHrine (PF) 0.3 ML in BALANCED SALT IRRIG SOLN COMB2 500 ML IRRIGATION ONE (11:46)
--- NOTE | 2024-02-15 12:03 | P.OP ---
Date of Procedure: 02/15/24 Preoperative Diagnosis: NS & CS Postoperative Diagnosis: same Procedure(s) Performed: PIOL, OS Implants: TFAT00 18.00 Anesthesia: MAC Surgeon: Beny Bose Pathology: none sent Condition: stable Disposition: same day Indications for Procedure: blurry vision Operative Findings: no complications
[2024-02-15 12:11] VITALS: RESP 16
[2024-02-15 12:48] VITALS: BP 130/66; PULSE 69
--- NOTE | 2024-02-15 14:26 | OP ---
OPERATIVE REPORT DATE OF SERVICE : 02/15/2024 PREOPERATIVE DIAGNOSES: Nuclear sclerosis, cortical sclerosis. POSTOPERATIVE DIAGNOSES: Nuclear sclerosis, cortical sclerosis. OPERATION: Phacoemulsification of cataract and interocular lens implant of her left eye. ESTIMATED BLOOD LOSS: Zero. SPECIMEN TAKEN: None. NARRATIVE: After obtaining the appropriate consent, the patient was brought to the operating room where the patient was placed under cardiac monitoring and prepped and draped in the usual sterile manner. At the 5 o'clock position, a 15-degree super sharp blade was used to create a paracentesis followed by instillation of 1% Xylocaine MPF 50:50 mix with BSS into the anterior chamber. This was followed by Amvisc viscoelastic to stabilize the anterior chamber. At the 3 o'clock position a self-sealing corneal flap incision was created using 2.8 mm chava keratome. A cystotome was used to initiate a continuous tear capsulorrhexis which was completed with the Utrata forceps. A Binkhorst cannula was used to hydrodissect the lens nucleus followed by hydrodelineation. Phacoemulsification of the lens was performed utilizing phacochop in 4.48 seconds at 9.7% power. The remaining cortical material was removed using the irrigation aspiration mode followed by additional 1% Xylocaine MPF into the anterior chamber followed by viscoelastic to stabilize the capsular bag. An Tristen PanOptix IOL model TFAT00 18.0 diopters posterior chamber lens was placed into the capsular bag without difficulty. The remaining viscoelastic material was removed from the anterior chamber with the irrigation/aspiration. Balanced salt solution was used to normalize the intraocular pressure. The incision was checked for watertight integrity. The patient then received 2 drops of 0.5% timolol followed by 2 drops Vigamox, was lightly patched and shielded in the usual manner. There were no complications from the procedure. The patient tolerated the procedure well and was returned to recovery in good condition. MMODL / IJN: [id number] /
== END 2024-02-15 12:45 | disposition home or self-care (01) ==
LOC: OR 09:58
PROVIDERS: ATTEND Ophthalmology
DX: H25.12 Age-related nuclear cataract, left eye (principal); J45.909 Unspecified asthma, uncomplicated; K21.9 Gastro-esophageal reflux disease without esophagitis; G47.33 Obstructive sleep apnea (adult) (pediatric); Z79.51 Long term (current) use of inhaled steroids; Z79.899 Other long term (current) drug therapy; Z90.49 Acquired absence of other specified parts of digestive tract; Z98.890 Other specified postprocedural states
CPT/HCPCS: 66984; V2632; J2250; J0171; J3010; J2001